=== PATIENT | female | born 2000 ===

== ENCOUNTER 2023-05-09 03:57 | Emergency (ER) | payer SELFPAY ==
[~2023-05-09] VITALS: Ht 152.4 cm; Wt 89.0 kg
[2023-05-09 04:06] VITALS: BP 144/75; TEMP 98.4; O2SAT 98
[2023-05-09 04:13] VITALS: PULSE 86; RESP 16
[2023-05-09 04:40] LABS: CLARITY URINE CLEAR (CLEAR); COLOR URINE YELLOW (YELLOW); GLUCOSE URINE NEGATIVE (NEGATIVE); KETONES URINE NEGATIVE (NEGATIVE); LEUKOCYTE ESTERASE URINE NEGATIVE (NEGATIVE); NITRITE URINE NEGATIVE (NEGATIVE); OCCULT BLOOD URINE NEGATIVE (NEGATIVE); PH URINE 7.5 (4.5-8.0); PROTEIN URINE NEGATIVE (NEGATIVE); SPECIFIC GRAVITY URINE 1.021 (1.005-1.030); UROBILINOGEN URINE 0.2 E.U./dL (0.2-1.0)
== END 2023-05-09 05:42 | disposition left against medical advice (07) ==
LOC: ER 03:57
DX: Z53.21 Procedure and treatment not carried out due to patient leaving prior to being seen by health care provider (principal)
CPT/HCPCS: 81003; 81025; 87591; 99281